=== PATIENT | female | born 1965 | race Caucasian/White ===

== ENCOUNTER 2017-09-14 13:27 | Day surgery (SDC) | payer OTHER ==
[~2017-09-14] VITALS: Ht 167.6 cm; Wt 86.8 kg
[2017-09-14 14:10] VITALS: Ht 167.6 cm; Wt 86.8 kg
[2017-09-14] MEDS ORDERED: PROPOFOL 20 ML ONE (14:24)
[2017-09-14 14:25] VITALS: BP 116/67; PULSE 65; RESP 13
[2017-09-14] MEDS ORDERED: ALPRAZOLAM (14:25)
--- NOTE | 2017-09-14 14:54 | OPPN ---
Date/Time of Note Date/Time of Note DATE: 09/14/17 TIME: 14:53 Operative Report Preoperative Diagnosis Screening Postoperative Diagnosis Internal hemorrhoids No colon neoplasm was identified Operation/Procedure Performed Colonoscopy Surgeon see signature line human resources benefits assistant None Anesthesia: MAC Estimated blood loss: none Transfusion Required none Specimen None Grafts/Implants none Complications none VESNA RODRIGUEZ MD Sep 14, 2017 14:54
[2017-09-14 15:20] VITALS: BP 119/71; RESP 17
--- NOTE | 2017-09-15 06:30 | GILP ---
DATE OF PROCEDURE: NAME OF PROCEDURE: Colonoscopy. SURGEON: Vesna Arellano MD PREOPERATIVE DIAGNOSIS: Screening colonoscopy. POSTOPERATIVE DIAGNOSES 1. Colonoscopy all the way to the cecum. 2. Internal hemorrhoids. 3. No colon neoplasm was identified. INDICATION FOR THE PROCEDURE: Ms. Tracy Lala is a 51-year-old female patient who was schedule d for screening colonoscopy. The procedure and possible complications were well explained to the patient. The patient understood and consented to the procedure. DESCRIPTION OF PROCEDURE: Under the influence of anesthesia, the colonoscope was carefully introduc ed in the rectum and under direct vision, it was advanced all the way to the cecum. FINDINGS: The patient had internal hemorrhoids. No colon neoplasm was identified. She tolerated the procedure very well and there was no complication from the procedure. At the end of the procedures, she was awake with stable vital signs and she was discharged home to the care of her family. IMPRESSION: 1. Colonoscopy all the way to the cecum. 2. Internal hemorrhoids. 3. No colon neoplasm was identified. PLAN: Screening colonoscopy in 10 years. Dictated By: VESNA BAUTISTA/ROMEO Conf#: [id number] DID#: [id number]
== END 2017-09-14 16:12 | disposition home or self-care (01) ==
LOC: GIL 13:27
PROVIDERS: ATTEND Internal Medicine Gastroenterology
DX: Z12.11 Encounter for screening for malignant neoplasm of colon (principal); K64.8 Other hemorrhoids; E66.9 Obesity, unspecified; Z68.30 Body mass index [BMI] 30.0-30.9, adult; F41.1 Generalized anxiety disorder
CPT/HCPCS: 45378; Z7610